=== PATIENT | male | born 1945 | race Caucasian/White ===

== ENCOUNTER 2020-07-28 11:15 | Inpatient (IN) | payer OTHER, BC ==
[2020-07-28 12:06] VITALS: BMI 38.0
[2020-07-28 12:18] LABS: BASO % 0.6 % (0-2.0); EOS % 0.2 % (0-4.5); HEMATOCRIT 39.5 % (35.4-49); HEMOGLOBIN 13.3 GM/dL (11.7-16.9); LYMPH % 15.2 % (8-40); MCH 31.7 pg (25.7-33.7); MCHC 33.6 g/dl (32.0-35.9); MEAN CELL VOLUME 94.3 fl (80-96); MEAN PLT VOLUME 9.5 fl (7.5-11.1); MONO % 12.6 % (3.8-10.2); NEUT % 71.4 % (42.8-82.8); PLATELET COUNT 167 K/MM3 (134-434); RBC 4.19 M/mm3 (4.00-5.60); RDW 12.9 % (11.9-15.9); WHITE BLOOD COUNT 5.4 K/mm3 (4.0-10.0)
[2020-07-28 12:33] LABS: ALBUMIN 3.5 g/dl (3.4-5.0); CALCIUM 8.2 mg/dL (8.5-10.1)
[2020-07-28 12:35] LABS: BLOOD UREA NITROGEN 15.8 mg/dL (7-18)
[2020-07-28] MEDS ORDERED: LIDOCAINE 5% TOPICAL PATCH TP ONE (12:36)
[2020-07-28] MEDS ORDERED: ACETAMINOPHEN 325 MG TABLET (FP) PO ONE (12:36)
[2020-07-28 12:37] LABS: CREATININE 1.1 mg/dL (0.55-1.3)
[2020-07-28 12:38] LABS: BILIRUBIN,TOTAL 1.9 mg/dL (0.2-1); TOT PROT 7.1 g/dl (6.4-8.2)
[2020-07-28 12:43] LABS: N-TERMINAL BNP 336.6 pg/ml (5-450)
[2020-07-28] MEDS ORDERED: ACETAMINOPHEN 325 MG TABLET (FP) ONE (13:04)
[2020-07-28] MEDS ORDERED: LIDOCAINE 5% TOPICAL PATCH ONE ×2 (13:04→22:25)
[2020-07-28] MEDS ORDERED: DEXAMETHASONE SOD PHOSPHATE 10 MG/1 ML VIAL IVPUSH ONE (13:15)
[2020-07-28] MEDS ORDERED: CEFTRIAXONE 1,000 MG in DEXTROSE 5%-WATER - 50 ML IVPB ONE (13:16)
[2020-07-28] MEDS ORDERED: AZITHROMYCIN 500 MG TABLET PO ONE (13:16)
[2020-07-28] MEDS ORDERED: DEXAMETHASONE SOD PHOSPHATE 10 MG/1 ML VIAL ONE (13:22)
[2020-07-28] MEDS ORDERED: AZITHROMYCIN 250 MG TABLET ONE (13:22)
[2020-07-28] MEDS ORDERED: CEFTRIAXONE 1 GM/50 ML BAG ONE (13:23)
[2020-07-28] MEDS ORDERED: ASPIRIN 81 MG CHEWABLE TABLETS PO ONE (13:36)
[2020-07-28 14:52] LABS: VENOUS BASE EXCESS -1.4 mmol/L (-2-2); VENOUS O2 SATURATION 66.9 % (70-80); VENOUS PCO2 47.8 mmHg (38-52); VENOUS PH 7.335 (7.310-7.410)
[2020-07-28 15:54] LABS: BILIRUBIN,DIRECT 0.4 mg/dL (0.0-0.2)
[2020-07-28 17:10] LABS: EPI CELLS 5 /uL (0-25.1); HYALINE CASTS 0 /uL (0-3.1); PH,URINE 6.5 (5.0-8.0); URINE APPEARANCE CLEAR; URINE BACTERIA 524 /uL (0-1359); URINE BILIRUBIN NEGATIVE (NEGATIVE); URINE COLOR DK YELLOW; URINE GLUCOSE (UA) 2+ (NEGATIVE); URINE KETONE TRACE (NEGATIVE); URINE LEUK ESTERASE NEGATIVE (NEGATIVE); URINE NITRITE NEGATIVE (NEGATIVE); URINE PROTEIN 2+ (NEGATIVE); URINE RBC 7 /uL (0-23.9); URINE WBC 3 /uL (0-25.8)
[2020-07-28] MEDS: INSULIN SLIDING SCALE (NOVOLOG) 1 VIAL SQ SCH ×2 (17:30→22:46)
[2020-07-28] MEDS ORDERED: LIDOCAINE PATCH REMOVAL MC ONE (22:00)
[2020-07-28] MEDS ORDERED: METOPROLOL TARTRATE 25 MG TABLET (FP) ONE (22:25)
[2020-07-28] MEDS ORDERED: METOPROLOL TARTRATE 50 MG TABLET (FP) ONE (22:25)
[2020-07-28] MEDS: METOPROLOL TARTRATE 25 MG TABLET (FP) PO SCH (22:46)
[2020-07-29] MEDS: INSULIN SLIDING SCALE (NOVOLOG) 1 VIAL SQ SCH ×4 (08:06→22:08)
[2020-07-29 08:08] LABS: HEMOGLOBIN 14.2 GM/dL (11.7-16.9); MCH 31.9 pg (25.7-33.7); MCHC 33.9 g/dl (32.0-35.9); MEAN CELL VOLUME 94.1 fl (80-96); MEAN PLT VOLUME 9.1 fl (7.5-11.1); PLATELET COUNT 158 K/MM3 (134-434); RBC 4.46 M/mm3 (4.00-5.60)
[2020-07-29 08:26] LABS: POTASSIUM 4.4 mmol/L (3.5-5.1)
[2020-07-29 08:27] LABS: CALCIUM 9.1 mg/dL (8.5-10.1)
[2020-07-29 08:28] LABS: BLOOD UREA NITROGEN 20.2 mg/dL (7-18); MAGNESIUM 2.4 mg/dL (1.8-2.4)
[2020-07-29 08:30] LABS: CREATININE 1.1 mg/dL (0.55-1.3)
[2020-07-29 08:32] LABS: PHOSPHOROUS 2.9 mg/dL (2.5-4.9)
[2020-07-29] MEDS ORDERED: CEFTRIAXONE 1 GM in DEXTROSE 5%-WATER - 50 ML IVPB SCH (10:00)
[2020-07-29] MEDS ORDERED: AZITHROMYCIN IVPB 250 MG in DEXTROSE 5%-WATER - 250 ML IVPB SCH (10:00)
[2020-07-29] MEDS ORDERED: ENOXAPARIN NA (PORCINE) 40 MG/0.4 ML DISP.SYRIN SQ SCH (10:00)
[2020-07-29] MEDS ORDERED: METOPROLOL TARTRATE 50 MG TABLET (FP) ONE (10:23)
[2020-07-29] MEDS ORDERED: DEXAMETHASONE SOD PHOSPHATE 4 MG/1 ML VIAL ONE (10:23)
[2020-07-29] MEDS ORDERED: GABAPENTIN 100 MG CAPSULE ONE (10:23)
[2020-07-29] MEDS ORDERED: METOPROLOL TARTRATE 25 MG TABLET (FP) ONE (10:23)
[2020-07-29] MEDS ORDERED: PANTOPRAZOLE 20 MG TABLET PO ONE (10:23)
[2020-07-29] MEDS ORDERED: CEFTRIAXONE 1 GM/50 ML BAG ONE (10:24)
[2020-07-29] MEDS ORDERED: ENOXAPARIN NA (PORCINE) 40 MG/0.4 ML DISP.SYRIN SQ ONE (10:24)
[2020-07-29] MEDS ORDERED: ASPIRIN 81 MG CHEWABLE TABLETS ONE (10:29)
[2020-07-29] MEDS: PANTOPRAZOLE 20 MG TABLET PO SCH (10:40)
[2020-07-29] MEDS: DEXAMETHASONE SOD PHOSPHATE 4 MG/1 ML VIAL IVPUSH SCH (10:40)
[2020-07-29] MEDS: METOPROLOL TARTRATE 25 MG TABLET (FP) PO SCH ×2 (10:40→21:51)
[2020-07-29] MEDS: ROSUVASTATIN CA 20 MG TABLET (FP) PO SCH (10:40)
[2020-07-29] MEDS: GABAPENTIN 300 MG CAPSULE PO SCH (10:40)
[2020-07-29] MEDS: ASPIRIN 81 MG CHEWABLE TABLETS PO SCH (10:40)
[2020-07-29] MEDS: INSULIN (LEVEMIR) 100 UNITS/ML UNITS SQ SCH ×2 (15:35→21:51)
[2020-07-29] MEDS ORDERED: REMDESIVIR 200 MG in SODIUM CHLORIDE 210 ML IVPB ONE (18:00)
[2020-07-29] MEDS: ENOXAPARIN NA (PORCINE) 100 MG/1 ML DISP.SYRIN SQ SCH (21:51)
[2020-07-30] MEDS ORDERED: ACETAMINOPHEN 325 MG TABLET (FP) PO ONE (00:18)
[2020-07-30 08:13] LABS: BASO % 0.1 % (0-2.0); HEMATOCRIT 38.5 % (35.4-49); HEMOGLOBIN 13.2 GM/dL (11.7-16.9); LYMPH % 17.6 % (8-40); MCH 31.9 pg (25.7-33.7); MCHC 34.4 g/dl (32.0-35.9); MEAN CELL VOLUME 92.8 fl (80-96); MEAN PLT VOLUME 9.6 fl (7.5-11.1); MONO % 8.4 % (3.8-10.2); NEUT % 73.9 % (42.8-82.8); PLATELET COUNT 137 K/MM3 (134-434); RBC 4.15 M/mm3 (4.00-5.60); RDW 12.6 % (11.9-15.9); WHITE BLOOD COUNT 6.6 K/mm3 (4.0-10.0)
[2020-07-30] MEDS: INSULIN (LEVEMIR) 100 UNITS/ML UNITS SQ SCH ×2 (08:20→22:15)
[2020-07-30] MEDS: INSULIN SLIDING SCALE (NOVOLOG) 1 VIAL SQ SCH ×4 (08:20→22:15)
[2020-07-30 08:41] LABS: POTASSIUM 3.9 mmol/L (3.5-5.1)
[2020-07-30 08:49] LABS: CALCIUM 8.2 mg/dL (8.5-10.1)
[2020-07-30 08:50] LABS: ALBUMIN 3.1 g/dl (3.4-5.0); MAGNESIUM 1.9 mg/dL (1.8-2.4)
[2020-07-30 08:52] LABS: CREATININE 1.1 mg/dL (0.55-1.3); PHOSPHOROUS 2.3 mg/dL (2.5-4.9)
[2020-07-30 08:54] LABS: BILIRUBIN,TOTAL 1.4 mg/dL (0.2-1); TOT PROT 6.7 g/dl (6.4-8.2)
[2020-07-30] MEDS ORDERED: ACETAMINOPHEN 1000 MG/100 ML VIAL (NON FORMULARY) IVPB ONE (09:07)
[2020-07-30] MEDS: GABAPENTIN 300 MG CAPSULE PO SCH (09:31)
[2020-07-30] MEDS: ZINC SULFATE 220 MG CAPSULE (FP) PO SCH (09:31)
[2020-07-30] MEDS: CHOLECALCIFEROL (VIT D3) 1,000 UNIT (25 MCG) TABLET PO SCH (09:31)
[2020-07-30] MEDS: DEXAMETHASONE SOD PHOSPHATE 4 MG/1 ML VIAL IVPUSH SCH (09:31)
[2020-07-30] MEDS: ASPIRIN 81 MG CHEWABLE TABLETS PO SCH (09:31)
[2020-07-30] MEDS: PANTOPRAZOLE 20 MG TABLET PO SCH (09:31)
[2020-07-30] MEDS: METOPROLOL TARTRATE 25 MG TABLET (FP) PO SCH ×2 (09:31→22:14)
[2020-07-30] MEDS: ROSUVASTATIN CA 20 MG TABLET (FP) PO SCH (09:31)
[2020-07-30] MEDS: ASCORBIC ACID 250 MG TABLET (FP) PO SCH ×2 (09:31→22:15)
[2020-07-30] MEDS: ENOXAPARIN NA (PORCINE) 100 MG/1 ML DISP.SYRIN SQ SCH ×2 (09:32→22:14)
[2020-07-30 09:48] LABS: INR 1.07 (0.83-1.09); PROTHROMBIN TIME (PATIENT) 12.9 SEC (9.7-13.0)
[2020-07-30 09:51] LABS: ACTIVATED PTT 37.6 SECONDS (25.2-36.5)
[2020-07-30] MEDS ORDERED: MAGNESIUM SULF 50% (8.12 MEQ/2 ML-1 GM VIAL) IVPB ONE (09:59)
[2020-07-30] MEDS ORDERED: METOCLOPRAMIDE HCL INJECTION 10 MG/2 ML VIAL IVPUSH ONE (10:00)
[2020-07-30] MEDS ORDERED: INSULIN (NOVOLOG) ASPART 100 UNITS/ML 10ML VIAL ONE (11:43)
[2020-07-30] MEDS ORDERED: ACETAMINOPHEN 325 MG TABLET (FP) PO PRN (13:00)
[2020-07-30] MEDS: REMDESIVIR 100 MG in SODIUM CHLORIDE 230 ML IVPB SCH (17:05)
[2020-07-31] MEDS: INSULIN SLIDING SCALE (NOVOLOG) 1 VIAL SQ SCH ×4 (07:00→22:31)
[2020-07-31] MEDS: INSULIN (LEVEMIR) 100 UNITS/ML UNITS SQ SCH ×2 (07:00→22:30)
[2020-07-31 08:42] LABS: BASO % 0.1 % (0-2.0); HEMATOCRIT 37.8 % (35.4-49); HEMOGLOBIN 12.7 GM/dL (11.7-16.9); LYMPH % 16.7 % (8-40); MCH 31.8 pg (25.7-33.7); MCHC 33.7 g/dl (32.0-35.9); MEAN CELL VOLUME 94.4 fl (80-96); MEAN PLT VOLUME 9.7 fl (7.5-11.1); MONO % 10.9 % (3.8-10.2); NEUT % 72.3 % (42.8-82.8); PLATELET COUNT 136 K/MM3 (134-434); RDW 12.9 % (11.9-15.9); WHITE BLOOD COUNT 5.2 K/mm3 (4.0-10.0)
[2020-07-31 09:01] LABS: POTASSIUM 4.1 mmol/L (3.5-5.1)
[2020-07-31 09:10] LABS: ALBUMIN 3.2 g/dl (3.4-5.0)
[2020-07-31 09:11] LABS: BLOOD UREA NITROGEN 28.5 mg/dL (7-18); CALCIUM 8.4 mg/dL (8.5-10.1)
[2020-07-31 09:12] LABS: MAGNESIUM 2.5 mg/dL (1.8-2.4); PHOSPHOROUS 3.6 mg/dL (2.5-4.9)
[2020-07-31 09:17] LABS: TOT PROT 6.8 g/dl (6.4-8.2)
[2020-07-31] MEDS: ROSUVASTATIN CA 20 MG TABLET (FP) PO SCH (09:52)
[2020-07-31] MEDS: ENOXAPARIN NA (PORCINE) 100 MG/1 ML DISP.SYRIN SQ SCH ×2 (09:52→21:40)
[2020-07-31] MEDS: PANTOPRAZOLE 20 MG TABLET PO SCH (09:52)
[2020-07-31] MEDS: ASCORBIC ACID 250 MG TABLET (FP) PO SCH ×2 (09:52→21:41)
[2020-07-31] MEDS: DEXAMETHASONE SOD PHOSPHATE 4 MG/1 ML VIAL IVPUSH SCH (09:52)
[2020-07-31] MEDS: METOPROLOL TARTRATE 25 MG TABLET (FP) PO SCH ×2 (09:52→21:40)
[2020-07-31] MEDS: ZINC SULFATE 220 MG CAPSULE (FP) PO SCH (09:53)
[2020-07-31] MEDS: ASPIRIN 81 MG CHEWABLE TABLETS PO SCH (09:53)
[2020-07-31] MEDS: CHOLECALCIFEROL (VIT D3) 1,000 UNIT (25 MCG) TABLET PO SCH (09:53)
[2020-07-31 10:10] LABS: ERYTHROCYTE SEDIMENTATION RATE 88 mm/hr (0-20)
[2020-07-31] MEDS: REMDESIVIR 100 MG in SODIUM CHLORIDE 230 ML IVPB SCH (17:02)
[2020-08-01] MEDS: INSULIN (LEVEMIR) 100 UNITS/ML UNITS SQ SCH ×2 (06:03→23:53)
[2020-08-01] MEDS: INSULIN SLIDING SCALE (NOVOLOG) 1 VIAL SQ SCH ×4 (06:03→23:50)
[2020-08-01] MEDS: ASCORBIC ACID 250 MG TABLET (FP) PO SCH ×2 (09:53→23:39)
[2020-08-01] MEDS: ASPIRIN 81 MG CHEWABLE TABLETS PO SCH (09:53)
[2020-08-01] MEDS: ROSUVASTATIN CA 20 MG TABLET (FP) PO SCH (09:53)
[2020-08-01] MEDS: PANTOPRAZOLE 20 MG TABLET PO SCH (09:53)
[2020-08-01] MEDS: ZINC SULFATE 220 MG CAPSULE (FP) PO SCH (09:53)
[2020-08-01] MEDS: DEXAMETHASONE SOD PHOSPHATE 4 MG/1 ML VIAL IVPUSH SCH (09:53)
[2020-08-01] MEDS: METOPROLOL TARTRATE 25 MG TABLET (FP) PO SCH ×2 (09:53→23:25)
[2020-08-01] MEDS: CHOLECALCIFEROL (VIT D3) 1,000 UNIT (25 MCG) TABLET PO SCH (09:54)
[2020-08-01] MEDS: ENOXAPARIN NA (PORCINE) 100 MG/1 ML DISP.SYRIN SQ SCH ×2 (09:54→23:25)
[2020-08-01 11:39] LABS: BASO % 0.2 % (0-2.0); EOS % 0.1 % (0-4.5); HEMATOCRIT 38.5 % (35.4-49); HEMOGLOBIN 13.1 GM/dL (11.7-16.9); LYMPH % 12.8 % (8-40); MCH 31.4 pg (25.7-33.7); MCHC 33.9 g/dl (32.0-35.9); MEAN CELL VOLUME 92.6 fl (80-96); MEAN PLT VOLUME 9.3 fl (7.5-11.1); MONO % 8.5 % (3.8-10.2); NEUT % 78.4 % (42.8-82.8); PLATELET COUNT 175 K/MM3 (134-434); RBC 4.16 M/mm3 (4.00-5.60); RDW 12.5 % (11.9-15.9); WHITE BLOOD COUNT 8.6 K/mm3 (4.0-10.0)
[2020-08-01 12:12] LABS: ALBUMIN 3.1 g/dl (3.4-5.0); BLOOD UREA NITROGEN 21.3 mg/dL (7-18); CALCIUM 8.5 mg/dL (8.5-10.1)
[2020-08-01 12:15] LABS: CREATININE 0.8 mg/dL (0.55-1.3)
[2020-08-01 12:17] LABS: TOT PROT 6.6 g/dl (6.4-8.2)
[2020-08-01] MEDS: REMDESIVIR 100 MG in SODIUM CHLORIDE 230 ML IVPB SCH (17:00)
[2020-08-01] MEDS: POLYETHYLENE GLYCOL 3350 119 GM BTL PO SCH (23:32)
[2020-08-01] MEDS: SENNOSIDES 8.6MG TABLET (FP) PO SCH (23:34)
[2020-08-01] MEDS: DOCUSATE SODIUM 100 MG CAPSULE (FP) PO SCH (23:39)
[2020-08-02] MEDS: INSULIN SLIDING SCALE (NOVOLOG) 1 VIAL SQ SCH ×4 (06:09→21:43)
[2020-08-02] MEDS: INSULIN (LEVEMIR) 100 UNITS/ML UNITS SQ SCH ×2 (06:16→21:41)
[2020-08-02 08:37] LABS: BASO % 0.2 % (0-2.0); EOS % 0.1 % (0-4.5); HEMATOCRIT 36.8 % (35.4-49); HEMOGLOBIN 12.6 GM/dL (11.7-16.9); LYMPH % 18.1 % (8-40); MCH 31.7 pg (25.7-33.7); MCHC 34.2 g/dl (32.0-35.9); MEAN CELL VOLUME 92.6 fl (80-96); MEAN PLT VOLUME 9.1 fl (7.5-11.1); MONO % 9.8 % (3.8-10.2); NEUT % 71.8 % (42.8-82.8); PLATELET COUNT 191 K/MM3 (134-434); RBC 3.97 M/mm3 (4.00-5.60); RDW 12.8 % (11.9-15.9); WHITE BLOOD COUNT 7.1 K/mm3 (4.0-10.0)
[2020-08-02 09:11] LABS: POTASSIUM 3.9 mmol/L (3.5-5.1)
[2020-08-02 09:13] LABS: CALCIUM 8.5 mg/dL (8.5-10.1)
[2020-08-02 09:14] LABS: ALBUMIN 3.1 g/dl (3.4-5.0); BLOOD UREA NITROGEN 23.9 mg/dL (7-18)
[2020-08-02 09:17] LABS: CREATININE 1.1 mg/dL (0.55-1.3)
[2020-08-02 09:18] LABS: BILIRUBIN,TOTAL 1.2 mg/dL (0.2-1)
[2020-08-02 09:19] LABS: TOT PROT 6.5 g/dl (6.4-8.2)
[2020-08-02] MEDS: DEXAMETHASONE SOD PHOSPHATE 4 MG/1 ML VIAL IVPUSH SCH (10:52)
[2020-08-02] MEDS: METOPROLOL TARTRATE 25 MG TABLET (FP) PO SCH ×2 (10:52→21:51)
[2020-08-02] MEDS: PANTOPRAZOLE 20 MG TABLET PO SCH (10:52)
[2020-08-02] MEDS: ENOXAPARIN NA (PORCINE) 100 MG/1 ML DISP.SYRIN SQ SCH ×2 (10:52→21:41)
[2020-08-02] MEDS: ASCORBIC ACID 250 MG TABLET (FP) PO SCH ×2 (10:52→21:40)
[2020-08-02] MEDS: DOCUSATE SODIUM 100 MG CAPSULE (FP) PO SCH (10:53)
[2020-08-02] MEDS: CHOLECALCIFEROL (VIT D3) 1,000 UNIT (25 MCG) TABLET PO SCH (10:53)
[2020-08-02] MEDS: ASPIRIN 81 MG CHEWABLE TABLETS PO SCH (10:53)
[2020-08-02] MEDS: ROSUVASTATIN CA 20 MG TABLET (FP) PO SCH (10:53)
[2020-08-02] MEDS: ZINC SULFATE 220 MG CAPSULE (FP) PO SCH (10:54)
[2020-08-02] MEDS: Insulin (LOG) Aspart 100 UNITS/ML VIAL SQ SCH ×2 (12:55→18:19)
[2020-08-02] MEDS: POLYETHYLENE GLYCOL 3350 119 GM BTL PO SCH ×2 (12:56→21:40)
[2020-08-02] MEDS: REMDESIVIR 100 MG in SODIUM CHLORIDE 230 ML IVPB SCH (18:18)
[2020-08-02] MEDS: SENNOSIDES 8.6MG TABLET (FP) PO SCH (21:44)
[2020-08-03] MEDS: INSULIN (LEVEMIR) 100 UNITS/ML UNITS SQ SCH (06:21)
[2020-08-03] MEDS: INSULIN SLIDING SCALE (NOVOLOG) 1 VIAL SQ SCH ×3 (06:22→16:38)
[2020-08-03] MEDS: Insulin (LOG) Aspart 100 UNITS/ML VIAL SQ SCH ×3 (06:38→16:38)
[2020-08-03 07:33] LABS: BASO % 0.3 % (0-2.0); HEMATOCRIT 38.4 % (35.4-49); HEMOGLOBIN 12.9 GM/dL (11.7-16.9); MCH 31.5 pg (25.7-33.7); MCHC 33.6 g/dl (32.0-35.9); MEAN CELL VOLUME 93.8 fl (80-96); MEAN PLT VOLUME 9.7 fl (7.5-11.1); NEUT % 72.7 % (42.8-82.8); PLATELET COUNT 205 K/MM3 (134-434); RDW 12.9 % (11.9-15.9); WHITE BLOOD COUNT 7.3 K/mm3 (4.0-10.0)
[2020-08-03 08:30] LABS: ALBUMIN 3.1 g/dl (3.4-5.0); BLOOD UREA NITROGEN 21.6 mg/dL (7-18); CALCIUM 8.4 mg/dL (8.5-10.1)
[2020-08-03 08:31] LABS: MAGNESIUM 2.3 mg/dL (1.8-2.4)
[2020-08-03 08:33] LABS: CREATININE 0.9 mg/dL (0.55-1.3); PHOSPHOROUS 2.9 mg/dL (2.5-4.9)
[2020-08-03 08:34] LABS: BILIRUBIN,TOTAL 1.1 mg/dL (0.2-1)
[2020-08-03 08:35] LABS: TOT PROT 6.7 g/dl (6.4-8.2)
[2020-08-03] MEDS: ROSUVASTATIN CA 20 MG TABLET (FP) PO SCH (10:58)
[2020-08-03] MEDS: ZINC SULFATE 220 MG CAPSULE (FP) PO SCH (10:58)
[2020-08-03] MEDS: CHOLECALCIFEROL (VIT D3) 1,000 UNIT (25 MCG) TABLET PO SCH (10:59)
[2020-08-03] MEDS: ASPIRIN 81 MG CHEWABLE TABLETS PO SCH (10:59)
[2020-08-03] MEDS: PANTOPRAZOLE 20 MG TABLET PO SCH (10:59)
[2020-08-03] MEDS: ASCORBIC ACID 250 MG TABLET (FP) PO SCH (10:59)
[2020-08-03] MEDS: DOCUSATE SODIUM 100 MG CAPSULE (FP) PO SCH (10:59)
[2020-08-03] MEDS: ENOXAPARIN NA (PORCINE) 100 MG/1 ML DISP.SYRIN SQ SCH (11:00)
[2020-08-03] MEDS: DEXAMETHASONE SOD PHOSPHATE 4 MG/1 ML VIAL IVPUSH SCH (11:00)
[2020-08-03] MEDS: METOPROLOL TARTRATE 25 MG TABLET (FP) PO SCH (11:00)
[2020-08-03] MEDS ORDERED: BISACODYL 10 MG SUPP.RECT PR ONE (11:45)
[2020-08-03] MEDS: POLYETHYLENE GLYCOL 3350 119 GM BTL PO SCH (13:08)
[2020-08-03 15:59] VITALS: BP 110/52; PULSE 64; TEMP 98.4
== END 2020-08-03 20:43 | disposition home health service (06) | DRG 177 ==
LOC: JER 11:15 → JERBED 13:09 → J4W 07-29 17:24
PROVIDERS: ADMIT Internal Medicine; ATTEND Internal Medicine
PROC: XW033E5 Introduction of Remdesivir Anti-infective into Peripheral Vein, Percutaneous Approach, New Technology Group 5 (ICD-10-PCS; principal; 2020-07-30)
PROC: XW13325 Transfusion of Convalescent Plasma (Nonautologous) into Peripheral Vein, Percutaneous Approach, New Technology Group 5 (ICD-10-PCS; 2020-07-30)
DX: U07.1 COVID-19 (principal); J12.82 Pneumonia due to coronavirus disease 2019; J96.01 Acute respiratory failure with hypoxia; I21.4 Non-ST elevation (NSTEMI) myocardial infarction; I24.8 Other forms of acute ischemic heart disease; I47.1 Supraventricular tachycardia; N17.9 Acute kidney failure, unspecified; M54.5 Low back pain; E11.65 Type 2 diabetes mellitus with hyperglycemia; G47.33 Obstructive sleep apnea (adult) (pediatric); I25.10 Atherosclerotic heart disease of native coronary artery without angina pectoris; I10 Essential (primary) hypertension; E78.5 Hyperlipidemia, unspecified; K21.9 Gastro-esophageal reflux disease without esophagitis; Z95.1 Presence of aortocoronary bypass graft; Z95.5 Presence of coronary angioplasty implant and graft; E66.01 Morbid (severe) obesity due to excess calories; Z68.38 Body mass index [BMI] 38.0-38.9, adult
CPT/HCPCS: 36415; 36430; 70450-TC; 71045-TC-FY; 71250-TC; 72125-TC; 72128-TC; 72131-TC; 80048; 80053; 81003; 82248; 82550; 82553; 82728; 82803; 82962; 83036; 83605; 83615; 83735; 83880; 84100; 84443; 84484; 85025; 85027; 85379; 85610; 85651; 85730; 86140; 86850; 86900; 86901; 87040; 87086; 87186; 87426; 87804; 93005; 93010; 97116-GP; 97162-GP; 99291; C9399; J0131; J1100; P9017

== ENCOUNTER 2020-11-16 23:13 | Observation (INO) | payer OTHER, BC ==
[2020-11-17 01:09] LABS: EPI CELLS 7 /uL (0-25.1); HYALINE CASTS 0 /uL (0-3.1); PH,URINE 5.5 (5.0-8.0); URINE APPEARANCE CLEAR; URINE BACTERIA 189 /uL (0-1359); URINE BILIRUBIN NEGATIVE (NEGATIVE); URINE COLOR YELLOW; URINE GLUCOSE (UA) 3+ (NEGATIVE); URINE KETONE TRACE (NEGATIVE); URINE LEUK ESTERASE NEGATIVE (NEGATIVE); URINE NITRITE NEGATIVE (NEGATIVE); URINE PROTEIN 1+ (NEGATIVE); URINE RBC 9 /uL (0-23.9); URINE WBC 15 /uL (0-25.8)
[2020-11-17 01:13] LABS: BASO % 0.3 % (0-2.0); EOS % 0.2 % (0-4.5); HEMATOCRIT 37.5 % (35.4-49); HEMOGLOBIN 12.8 GM/dL (11.7-16.9); LYMPH % 16.5 % (8-40); MCH 31.7 pg (25.7-33.7); MCHC 34.1 g/dl (32.0-35.9); MEAN CELL VOLUME 92.9 fl (80-96); MEAN PLT VOLUME 9.2 fl (7.5-11.1); MONO % 11.3 % (3.8-10.2); NEUT % 71.7 % (42.8-82.8); PLATELET COUNT 166 K/MM3 (134-434); RBC 4.04 M/mm3 (4.00-5.60); RDW 13.5 % (11.9-15.9); WHITE BLOOD COUNT 5.9 K/mm3 (4.0-10.0)
[2020-11-17 01:16] LABS: INR 1.06 (0.83-1.09)
[2020-11-17 01:19] LABS: ACTIVATED PTT 29.4 SECONDS (25.2-36.5)
[2020-11-17 01:26] LABS: ALBUMIN 3.8 g/dl (3.4-5.0); CALCIUM 8.4 mg/dL (8.5-10.1)
[2020-11-17 01:27] LABS: BLOOD UREA NITROGEN 18.8 mg/dL (7-18); MAGNESIUM 1.8 mg/dL (1.8-2.4)
[2020-11-17 01:30] LABS: PHOSPHOROUS 2.8 mg/dL (2.5-4.9)
[2020-11-17 01:31] LABS: BILIRUBIN,TOTAL 2.8 mg/dL (0.2-1); TOT PROT 6.9 g/dl (6.4-8.2)
[2020-11-17] MEDS ORDERED: LIDOCAINE 5% TOPICAL PATCH TP ONE ×2 (05:01→06:13)
[2020-11-17] MEDS ORDERED: ACETAMINOPHEN 1000 MG/100 ML VIAL (NON FORMULARY) IVPB ONE (05:02)
[2020-11-17] MEDS ORDERED: LIDOCAINE 5% TOPICAL PATCH ONE ×2 (05:04→17:51)
[2020-11-17] MEDS ORDERED: ACETAMINOPHEN INJECTION 100 ML IVPB ONE (05:04)
[2020-11-17] MEDS ORDERED: SODIUM CHLORIDE 1,000 ML IV STA (06:07)
[2020-11-17] MEDS ORDERED: ACETAMINOPHEN 325 MG TABLET (FP) PO PRN (06:07)
[2020-11-17] MEDS ORDERED: IBUPROFEN 400 MG TABLET (FP) PO PRN (06:07)
[2020-11-17] MEDS: INSULIN SLIDING SCALE (NOVOLOG) 1 VIAL SQ SCH ×4 (07:27→23:36)
[2020-11-17] MEDS: PANTOPRAZOLE 40 MG TABLET PO SCH (07:28)
[2020-11-17] MEDS ORDERED: PANTOPRAZOLE 40 MG TABLET ONE (07:30)
[2020-11-17 09:13] LABS: HEMATOCRIT 37.5 % (35.4-49); HEMOGLOBIN 12.7 GM/dL (11.7-16.9); MCH 31.3 pg (25.7-33.7); MCHC 33.8 g/dl (32.0-35.9); MEAN CELL VOLUME 92.6 fl (80-96); MEAN PLT VOLUME 8.6 fl (7.5-11.1); PLATELET COUNT 168 K/MM3 (134-434); RBC 4.05 M/mm3 (4.00-5.60); RDW 13.5 % (11.9-15.9); WHITE BLOOD COUNT 5.4 K/mm3 (4.0-10.0)
[2020-11-17 09:46] LABS: ALBUMIN 3.5 g/dl (3.4-5.0); BLOOD UREA NITROGEN 14.6 mg/dL (7-18); CALCIUM 8.5 mg/dL (8.5-10.1)
[2020-11-17 09:48] LABS: CREATININE 0.9 mg/dL (0.55-1.3)
[2020-11-17 09:49] LABS: PHOSPHOROUS 3.2 mg/dL (2.5-4.9)
[2020-11-17 09:50] LABS: BILIRUBIN,TOTAL 2.7 mg/dL (0.2-1); TOT PROT 6.7 g/dl (6.4-8.2)
[2020-11-17] MEDS ORDERED: GABAPENTIN 100 MG CAPSULE ONE (10:42)
[2020-11-17] MEDS ORDERED: ASPIRIN 81 MG CHEWABLE TABLETS ONE (10:42)
[2020-11-17] MEDS ORDERED: DOCUSATE SODIUM 100 MG CAPSULE (FP) PO ONE (10:42)
[2020-11-17] MEDS ORDERED: ENOXAPARIN NA (PORCINE) 40 MG/0.4 ML DISP.SYRIN SQ ONE (10:43)
[2020-11-17] MEDS: ASPIRIN 81 MG CHEWABLE TABLETS PO SCH (10:50)
[2020-11-17] MEDS: GABAPENTIN 300 MG CAPSULE PO SCH (10:50)
[2020-11-17] MEDS: DOCUSATE SODIUM 100 MG CAPSULE (FP) PO SCH (10:50)
[2020-11-17] MEDS: ENOXAPARIN NA (PORCINE) 40 MG/0.4 ML DISP.SYRIN SQ SCH (10:50)
[2020-11-17] MEDS ORDERED: LIDOCAINE PATCH REMOVAL MC ONE ×2 (17:00→18:00)
[2020-11-17] MEDS ORDERED: INSULIN (LEVEMIR) 100 UNITS/ML UNITS SQ SCH (22:00)
[2020-11-17] MEDS ORDERED: ROSUVASTATIN CA 40 MG TABLET PO SCH (22:00)
[2020-11-17] MEDS: SENNOSIDES 8.6MG TABLET (FP) PO SCH (23:35)
[2020-11-17] MEDS ORDERED: ROSUVASTATIN CA 20 MG TABLET (FP) PO SCH (23:53)
[2020-11-18] MEDS: ROSUVASTATIN CA 20 MG TABLET (FP) PO SCH ×2 (00:11→21:32)
[2020-11-18] MEDS: PANTOPRAZOLE 40 MG TABLET PO SCH (06:18)
[2020-11-18] MEDS: INSULIN SLIDING SCALE (NOVOLOG) 1 VIAL SQ SCH ×4 (06:20→21:34)
[2020-11-18] MEDS ORDERED: INSULIN (LEVEMIR) 100 UNITS/ML UNITS SQ SCH (08:04)
[2020-11-18 08:26] LABS: BASO % 0.5 % (0-2.0); HEMATOCRIT 36.3 % (35.4-49); HEMOGLOBIN 12.4 GM/dL (11.7-16.9); MCHC 34.3 g/dl (32.0-35.9); MEAN CELL VOLUME 93.3 fl (80-96); MEAN PLT VOLUME 9.1 fl (7.5-11.1); MONO % 12.6 % (3.8-10.2); NEUT % 62.9 % (42.8-82.8); PLATELET COUNT 158 K/MM3 (134-434); RBC 3.89 M/mm3 (4.00-5.60); RDW 13.7 % (11.9-15.9)
[2020-11-18 08:30] VITALS: BMI 36.3
[2020-11-18 08:58] LABS: CALCIUM 8.5 mg/dL (8.5-10.1)
[2020-11-18 09:00] LABS: ALBUMIN 3.2 g/dl (3.4-5.0); BILIRUBIN,TOTAL 1.6 mg/dL (0.2-1); TOT PROT 6.3 g/dl (6.4-8.2)
[2020-11-18 09:02] LABS: CREATININE 0.8 mg/dL (0.55-1.3)
[2020-11-18] MEDS: ENOXAPARIN NA (PORCINE) 40 MG/0.4 ML DISP.SYRIN SQ SCH (09:40)
[2020-11-18] MEDS: ASPIRIN 81 MG CHEWABLE TABLETS PO SCH (09:40)
[2020-11-18] MEDS: GABAPENTIN 300 MG CAPSULE PO SCH (09:40)
[2020-11-18] MEDS: DOCUSATE SODIUM 100 MG CAPSULE (FP) PO SCH (09:40)
[2020-11-18] MEDS: LIDOCAINE 5% TOPICAL PATCH TP SCH (16:11)
[2020-11-18] MEDS: POLYETHYLENE GLYCOL 3350 119 GM BTL PO SCH (21:32)
[2020-11-18] MEDS: SENNOSIDES 8.6MG TABLET (FP) PO SCH (21:32)
[2020-11-18] MEDS ORDERED: LIDOCAINE PATCH REMOVAL MC SCH (22:00)
[2020-11-18] MEDS ORDERED: DOCUSATE SODIUM 100 MG CAPSULE (FP) PO SCH (22:00)
[2020-11-19 05:47] VITALS: BP 138/75; PULSE 79; TEMP 97.9
[2020-11-19] MEDS: INSULIN SLIDING SCALE (NOVOLOG) 1 VIAL SQ SCH ×2 (06:33→11:34)
[2020-11-19] MEDS: PANTOPRAZOLE 40 MG TABLET PO SCH (06:35)
[2020-11-19] MEDS ORDERED: INSULIN (LEVEMIR) 100 UNITS/ML UNITS SQ ONE (07:48)
[2020-11-19] MEDS ORDERED: PT OWN MED DRAWER 7, Y5N ONE ×3 (07:48→11:00)
[2020-11-19 08:09] LABS: BASO % 0.6 % (0-2.0); EOS % 4.6 % (0-4.5); HEMOGLOBIN 12.3 GM/dL (11.7-16.9); LYMPH % 24.9 % (8-40); MCH 31.7 pg (25.7-33.7); MCHC 34.1 g/dl (32.0-35.9); MEAN PLT VOLUME 8.9 fl (7.5-11.1); NEUT % 58.9 % (42.8-82.8); PLATELET COUNT 162 K/MM3 (134-434); RBC 3.87 M/mm3 (4.00-5.60); RDW 13.5 % (11.9-15.9); WHITE BLOOD COUNT 5.4 K/mm3 (4.0-10.0)
[2020-11-19 08:34] LABS: CALCIUM 8.5 mg/dL (8.5-10.1)
[2020-11-19 08:35] LABS: ALBUMIN 3.3 g/dl (3.4-5.0); BLOOD UREA NITROGEN 13.6 mg/dL (7-18)
[2020-11-19 08:38] LABS: CREATININE 0.9 mg/dL (0.55-1.3)
[2020-11-19 08:39] LABS: TOT PROT 6.3 g/dl (6.4-8.2)
[2020-11-19 08:41] LABS: BILIRUBIN,TOTAL 1.6 mg/dL (0.2-1)
[2020-11-19] MEDS ORDERED: LACTULOSE 20 GM/30 ML UDC (FOR ORAL USE ONLY) PO ONE (10:30)
[2020-11-19] MEDS ORDERED: BISACODYL 10 MG SUPP.RECT PR ONE (10:45)
[2020-11-19] MEDS: ASPIRIN 81 MG CHEWABLE TABLETS PO SCH (10:53)
[2020-11-19] MEDS: GABAPENTIN 300 MG CAPSULE PO SCH (10:53)
[2020-11-19] MEDS: ENOXAPARIN NA (PORCINE) 40 MG/0.4 ML DISP.SYRIN SQ SCH (10:53)
[2020-11-19] MEDS: LIDOCAINE 5% TOPICAL PATCH TP SCH (10:53)
[2020-11-19] MEDS: POLYETHYLENE GLYCOL 3350 119 GM BTL PO SCH (11:05)
== END 2020-11-19 15:39 | disposition home or self-care (01) ==
LOC: JER 23:13 → INTOOBSV 11-17 04:52 → JERBED 11-17 04:52 → UNDOADMOB 11-17 04:52 → JERBED 11-17 06:08 → J5S 11-17 18:16 → JERBED 11-17 18:16 → J5S 11-17 18:16
PROVIDERS: ADMIT Hospitalist; ATTEND Nurse Practitioner Acute Care
PROC: 3E033NZ Introduction of Analgesics, Hypnotics, Sedatives into Peripheral Vein, Percutaneous Approach (ICD-10-PCS; principal; 2020-11-17)
PROC: 3E023GC Introduction of Other Therapeutic Substance into Muscle, Percutaneous Approach (ICD-10-PCS; 2020-11-17)
PROC: 3E013VG Introduction of Insulin into Subcutaneous Tissue, Percutaneous Approach (ICD-10-PCS; 2020-11-17)
PROC: 3E013VG Introduction of Insulin into Subcutaneous Tissue, Percutaneous Approach (ICD-10-PCS; 2020-11-17)
PROC: 3E0337Z Introduction of Electrolytic and Water Balance Substance into Peripheral Vein, Percutaneous Approach (ICD-10-PCS; 2020-11-17)
DX: S22.32XA Fracture of one rib, left side, initial encounter for closed fracture (principal); E11.9 Type 2 diabetes mellitus without complications; E78.5 Hyperlipidemia, unspecified; Z95.1 Presence of aortocoronary bypass graft; I72.9 Aneurysm of unspecified site; R79.89 Other specified abnormal findings of blood chemistry; E66.9 Obesity, unspecified; Z68.36 Body mass index [BMI] 36.0-36.9, adult; K21.9 Gastro-esophageal reflux disease without esophagitis; I10 Essential (primary) hypertension; Z87.891 Personal history of nicotine dependence; Z95.5 Presence of coronary angioplasty implant and graft; R32 Unspecified urinary incontinence; Z96.652 Presence of left artificial knee joint; W06.XXXA Fall from bed, initial encounter; Y93.89 Activity, other specified; Y92.003 Bedroom of unspecified non-institutional (private) residence as the place of occurrence of the external cause; Z86.16 Personal history of COVID-19
CPT/HCPCS: 36415; 70450-TC; 71260-TC; 72125-TC; 74177-TC; 80053; 80061; 81003; 82550; 82553; 82962; 83721; 83735; 84100; 84484; 85025; 85027; 85610; 85730; 87086; 93005; 93010; 96361; 96372; 96374; 97116-GP; 97161-GP; 99285-25; C9803; G0378; J0131; U0003; U0005

== ENCOUNTER 2020-12-28 15:31 | Emergency (ER) | payer OTHER, BC ==
[2020-12-28 16:07] VITALS: TEMP 98.7; BMI 34.9
[2020-12-28] MEDS ORDERED: LIDOCAINE 5% TOPICAL PATCH TP ONE (17:23)
[2020-12-28] MEDS ORDERED: ACETAMINOPHEN 325 MG TABLET (FP) PO ONE (17:24)
[2020-12-28] MEDS ORDERED: LIDOCAINE 5% TOPICAL PATCH ONE (17:48)
[2020-12-28] MEDS ORDERED: ACETAMINOPHEN 500 MG TABLET (FP) ONE (17:49)
[2020-12-28 19:57] VITALS: BP 134/66; PULSE 58
[2020-12-29] MEDS ORDERED: LIDOCAINE PATCH REMOVAL MC SCH (06:00)
== END 2020-12-28 19:50 | disposition home or self-care (01) ==
LOC: JER 15:31
DX: M54.5 Low back pain (principal); G89.29 Other chronic pain
CPT/HCPCS: 72100-TC-FY; 99283-25

== ENCOUNTER 2022-02-08 04:09 | Day surgery (SDC) | payer OTHER, BC ==
[2022-02-06 10:59] VITALS: BMI 32.5
[2022-02-08 10:51] LABS: CALCIUM 9.3 mg/dL (8.5-10.1)
[2022-02-08 10:52] LABS: ALBUMIN 3.9 g/dl (3.4-5.0)
[2022-02-08 10:55] LABS: CREATININE 0.9 mg/dL (0.55-1.3)
[2022-02-08 10:57] LABS: BILIRUBIN,TOTAL 1.8 mg/dL (0.2-1); TOT PROT 7.5 g/dl (6.4-8.2)
[2022-02-08] MEDS ORDERED: HEPARIN NA (PORCINE) 5,000 UNITS/ML 1ML VIAL ONE (12:22)
[2022-02-08] MEDS ORDERED: LIDOCAINE HCL 1%, 10 MG/ML (20ML VIAL) ONE (12:22)
[2022-02-08] MEDS ORDERED: ASPIRIN 81 MG CHEWABLE TABLETS ONE (13:11)
[2022-02-08] MEDS ORDERED: MIDAZOLAM HCL 2 MG/2 ML SINGLE DOSE VIAL ONE (13:31)
[2022-02-08] MEDS ORDERED: ceFAZolin SODIUM 1 GM VIAL IVPB ONE (13:35)
[2022-02-08] MEDS ORDERED: PROPOFOL 20 ML ONE (13:47)
[2022-02-08] MEDS ORDERED: LIDOCAINE HCL 1%, 10 MG/ML (20ML VIAL) INF ONE (13:48)
[2022-02-08 17:52] VITALS: PULSE 67; RESP 18; TEMP 97.4
[2022-02-08 18:18] VITALS: BP 128/76
== END 2022-02-08 18:00 | disposition home or self-care (01) ==
LOC: JASU-SURG 04:09
PROVIDERS: ATTEND Surgery Vascular Surgery
PROC: 047P3ZZ Dilation of Right Anterior Tibial Artery, Percutaneous Approach (ICD-10-PCS; principal; 2022-02-08 13:48)
DX: E11.51 Type 2 diabetes mellitus with diabetic peripheral angiopathy without gangrene (principal); L97.519 Non-pressure chronic ulcer of other part of right foot with unspecified severity; Z79.4 Long term (current) use of insulin
CPT/HCPCS: 37228; C1725; 36415; 76000-TC-FY; 80053; 82962; 94760; J1644

== ENCOUNTER 2024-09-29 05:46 | Inpatient (IN) | payer OTHER, BC ==
[2024-09-29] MEDS ORDERED: ACETAMINOPHEN 325 MG TABLET (FP) ONE (06:21)
[2024-09-29] MEDS ORDERED: LIDOCAINE 5% TOPICAL PATCH ONE (06:21)
[2024-09-29] MEDS ORDERED: IBUPROFEN 400 MG TABLET (FP) PO ONE (06:21)
[2024-09-29] MEDS: IBUPROFEN 400 MG TABLET (FP) PO ONE (06:31)
[2024-09-29] MEDS: LIDOCAINE 5% TOPICAL PATCH TP ONE (06:31)
[2024-09-29] MEDS: ACETAMINOPHEN 500 MG TABLET (FP) PO ONE (06:32)
[2024-09-29 08:08] LABS: EPI CELLS 2 /uL (0-25.1); HYALINE CASTS 0 /uL (0-3.1); URINE APPEARANCE CLEAR; URINE BACTERIA 14 /uL (0-1359); URINE BILIRUBIN NEGATIVE (NEGATIVE); URINE COLOR YELLOW; URINE GLUCOSE (UA) 1+ (NEGATIVE); URINE KETONE NEGATIVE (NEGATIVE); URINE LEUK ESTERASE NEGATIVE (NEGATIVE); URINE NITRITE NEGATIVE (NEGATIVE); URINE PROTEIN 1+ (NEGATIVE); URINE RBC 5 /uL (0-23.9); URINE WBC 6 /uL (0-25.8)
[2024-09-29] MEDS ORDERED: ACETAMINOPHEN 325 MG TABLET (FP) PO PRN (14:48)
[2024-09-29] MEDS: LIDOCAINE 5% TOPICAL PATCH TP SCH (15:38)
[2024-09-29] MEDS: PANTOPRAZOLE 20 MG TABLET PO SCH (15:41)
[2024-09-29 17:23] VITALS: BMI 31.0
[2024-09-29] MEDS: INSULIN ASPART SLIDING SCALE (NOVOLOG) 1 VIAL SQ SCH (19:26)
[2024-09-29] MEDS: METOPROLOL TARTRATE 50 MG TABLET (FP) PO SCH (22:37)
[2024-09-29] MEDS: HEPARIN NA (PORCINE) 5,000 UNITS/ML 1ML VIAL SQ SCH (22:37)
[2024-09-29] MEDS: INSULIN GLARGINE (LANTUS) 100 UNITS/ML UNITS SQ SCH (22:38)
[2024-09-29] MEDS: LIDOCAINE PATCH REMOVAL MC SCH ×2 (22:40)
[2024-09-30] MEDS: INSULIN (LEVEMIR) 100 UNITS/ML UNITS SQ SCH (00:56)
[2024-09-30] MEDS: INSULIN ASPART SLIDING SCALE (NOVOLOG) 1 VIAL SQ SCH (06:41)
[2024-09-30] MEDS: ASPIRIN 81 MG CHEWABLE TABLETS PO SCH (09:04)
[2024-09-30] MEDS: TORSEMIDE 20 MG TABLET (FP) PO SCH (09:04)
[2024-09-30] MEDS: ROSUVASTATIN CA 20 MG TABLET PO SCH (09:04)
[2024-09-30 09:12] LABS: MCH 35.3 pg (25.7-33.7); MCHC 34.5 g/dl (32.0-35.9); MEAN CELL VOLUME 102.2 fl (80-96); MEAN PLT VOLUME 9.6 fl (7.5-11.1); PLATELET COUNT 43 10^3/uL (134-434); RBC 2.55 M/mm3 (4.00-5.60); RDW 15.8 % (11.9-15.9)
[2024-09-30 09:13] LABS: POTASSIUM 4.2 mmol/L (3.5-5.1)
[2024-09-30 09:14] LABS: BLOOD UREA NITROGEN 18.5 mg/dL (7-18); CALCIUM 8.9 mg/dL (8.5-10.1)
[2024-09-30 09:18] LABS: CREATININE 0.9 mg/dL (0.55-1.3)
[2024-09-30 09:20] LABS: WHITE BLOOD COUNT 1.9 K/mm3 (4.0-10.0)
[2024-10-01 10:12] LABS: HEMATOCRIT 27.8 % (40.1-51.0); HEMOGLOBIN 9.4 g/dL (13.7-17.5); MCHC 33.8 g/dl (32.3-36.5); MEAN CELL VOLUME 103.3 fl (79.0-92.2); MEAN PLT VOLUME 11.6 fl (9.4-12.4); PLATELET COUNT # 46 x10^3/uL (163-337); RDW 13.9 % (12.2-16.6)
[2024-10-01 10:44] LABS: ALBUMIN 3.8 g/dl (3.4-5.0); BLOOD UREA NITROGEN 26.7 mg/dL (7-18); CALCIUM 9.2 mg/dL (8.5-10.1); MAGNESIUM 1.9 mg/dL (1.8-2.4); PHOSPHOROUS 4.6 mg/dL (2.5-4.9); POTASSIUM 3.9 mmol/L (3.5-5.1); TOT PROT 6.7 g/dl (6.4-8.2)
[2024-10-01] MEDS: POLYETHYLENE GLYCOL (HEALTHYLAX) 3350 17 GM PACKET PO SCH (11:31)
[2024-10-01] MEDS ORDERED: INSULIN ASPART SLIDING SCALE (NOVOLOG) 1 VIAL SQ ONE (12:53)
[2024-10-01] MEDS: INSULIN ASPART SLIDING SCALE (NOVOLOG) 1 VIAL SQ SCH (17:48)
[2024-10-01] MEDS: DOCUSATE SODIUM 100 MG CAPSULE (FP) PO SCH (22:22)
[2024-10-02 07:26] VITALS: RESP 18
[2024-10-02 08:37] LABS: HEMATOCRIT 25.9 % (40.1-51.0); HEMOGLOBIN 8.8 g/dL (13.7-17.5); MEAN CELL VOLUME 103.2 fl (79.0-92.2); MEAN PLT VOLUME 11.5 fl (9.4-12.4); PLATELET COUNT # 41 x10^3/uL (163-337); RDW 14.1 % (12.2-16.6)
[2024-10-02 09:16] LABS: POTASSIUM 4.2 mmol/L (3.5-5.1)
[2024-10-02 09:27] LABS: ALBUMIN 3.5 g/dl (3.4-5.0); BILIRUBIN,TOTAL 1.7 mg/dL (0.2-1); BLOOD UREA NITROGEN 29.3 mg/dL (7-18); CALCIUM 9.1 mg/dL (8.5-10.1); CREATININE 0.9 mg/dL (0.55-1.3); MAGNESIUM 2.1 mg/dL (1.8-2.4); TOT PROT 6.4 g/dl (6.4-8.2)
[2024-10-02 12:00] LABS: Reticulocyte % 1.12 % (0.51-1.81)
[2024-10-02 15:42] LABS: INR 1.06 (0.83-1.09); PROTHROMBIN TIME (PATIENT) 11.7 SEC (9.7-13.0)
[2024-10-02 15:45] LABS: ACTIVATED PTT 38.1 SECONDS (25.2-36.5)
[2024-10-02] MEDS: BISACODYL 5 MG TABLET.DR (FP) PO ONE (17:51)
[2024-10-02] MEDS: POLYETHYLENE GLYCOL (HEALTHYLAX) 3350 17 GM PACKET PO SCH (22:13)
[2024-10-02] MEDS: METOPROLOL TARTRATE 50 MG TABLET (FP) PO SCH (22:13)
[2024-10-03 07:40] VITALS: BP 124/41; PULSE 65; TEMP 97.5
[2024-10-03 09:20] LABS: HEMATOCRIT 25.1 % (40.1-51.0); HEMOGLOBIN 8.6 g/dL (13.7-17.5); MCHC 34.3 g/dl (32.3-36.5); MEAN CELL VOLUME 103.7 fl (79.0-92.2); MEAN PLT VOLUME 12.3 fl (9.4-12.4); PLATELET COUNT # 40 x10^3/uL (163-337); RDW 14.2 % (12.2-16.6)
[2024-10-03 09:46] LABS: POTASSIUM 3.9 mmol/L (3.5-5.1)
[2024-10-03 09:49] LABS: CALCIUM 8.8 mg/dL (8.5-10.1)
[2024-10-03 09:50] LABS: ALBUMIN 3.6 g/dl (3.4-5.0); MAGNESIUM 2.3 mg/dL (1.8-2.4)
[2024-10-03] MEDS: TORSEMIDE 20 MG TABLET (FP) PO SCH (09:52)
[2024-10-03 09:53] LABS: CREATININE 0.9 mg/dL (0.55-1.3)
[2024-10-03 09:55] LABS: TOT PROT 6.3 g/dl (6.4-8.2)
[2024-10-04 08:46] LABS: BILIRUBIN,DIRECT 0.4 mg/dL (0.0-0.2)
[2024-10-04 08:48] LABS: BILIRUBIN,TOTAL 1.9 mg/dL (0.2-1)
[2024-10-04 17:06] LABS: FREE KAPPA,SERUM 18.4 mg/L (3.3-19.4)
[2024-10-06 19:06] LABS: IG A QN SERUM. 217 mg/dL (61-437)
== END 2024-10-03 17:17 | disposition home health service (06) | DRG 552 ==
LOC: JER 05:46 → JERBED 13:45 → J8W 14:34
PROVIDERS: ADMIT Hospitalist; ATTEND Nurse Practitioner Acute Care
DX: M54.50 Low back pain, unspecified (principal); D61.818 Other pancytopenia; I25.10 Atherosclerotic heart disease of native coronary artery without angina pectoris; E78.5 Hyperlipidemia, unspecified; E11.9 Type 2 diabetes mellitus without complications; I10 Essential (primary) hypertension; I11.0 Hypertensive heart disease with heart failure; E11.51 Type 2 diabetes mellitus with diabetic peripheral angiopathy without gangrene; M47.9 Spondylosis, unspecified; I50.9 Heart failure, unspecified; K21.9 Gastro-esophageal reflux disease without esophagitis
CPT/HCPCS: 36415; 72131-TC; 80048; 80053; 81003; 82247; 82248; 82525; 82607; 82728; 82746; 82784; 82947; 82962; 83540; 83550; 83615; 83735; 83883; 84100; 84155; 84165; 84630; 85025; 85610; 85730; 87086; 88300-TC; 93306-TC; 93970-TC; 97116-GP; 97161-GP; 99285-25; J1644